=== PATIENT | male | born 1990 | race Caucasian/White ===

== ENCOUNTER 2020-01-28 09:30 | Emergency (ER) | payer OTHER, SELFPAY ==
[2020-01-28 09:35] VITALS: BMI 25.0
[2020-01-28 09:39] VITALS: BP 122/73; PULSE 76; RESP 16; TEMP 36.9; O2SAT 100
--- NOTE | 2020-01-28 09:45 | XR_ITS ---
WS: [id number] XR hand RT min 3V* [id number] REASON FOR EXAM: trauma pinky FINDINGS: A corner fracture chip type is seen in the base of the middle fifth phalanx a small ossicle is seen separate from the bony structure. Soft tissue swelling of the fifth phalanx is seen. The remaining phalanges, metacarpals, and carpals were normal. XR/XR hand RT min 3V* [id number] IMPRESSION: Corner fracture involving the middle fifth phalanx
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
--- NOTE | 2020-01-28 10:27 | DCPLANNER ---
manager bridge was asked to schedule a follow up appointment for patient with ortho. manager bridge called the ortho clinic, spoke with Rika, gave clinic patients information. manager bridge was told that patients information would be printed and reviewed. Clinic will call pillowcase cleaner and patient with appointment information.
--- NOTE | 2020-01-28 14:18 | DCPLANNER ---
Patient has a follow up appointment scheduled for , January 29, 2020 at 10:[address] Raya. parking manager [facility] information.
--- NOTE | 2020-02-10 15:03 | DCPLANNER ---
Patient did attend appointment scheduled for 01.29.20 with ortho.
== END 2020-01-28 10:28 | disposition home or self-care (01) ==
PROVIDERS: Emergency Provider Nurse Practitioner Family
DX: M79.644 Pain in right finger(s) (principal); F17.210 Nicotine dependence, cigarettes, uncomplicated
CPT/HCPCS: 12345; 73130; 99281; 99283

== ENCOUNTER 2020-02-03 08:49 | Outpatient (RCR) | payer OTHER, SELFPAY | END 2020-02-10 23:59 | disposition home or self-care (01) | LOC: SOT 08:49 | PROVIDERS: Referring Provider Specialist; Visit Provider Specialist | DX: S62.626D Displaced fracture of middle phalanx of right little finger, subsequent encounter for fracture with routine healing (principal); X58.XXXD Exposure to other specified factors, subsequent encounter | CPT/HCPCS: 97110; 97140; 97166 ==

== ENCOUNTER 2020-02-11 03:38 | Outpatient (RCR) | payer OTHER, SELFPAY | END 2020-03-12 23:59 | disposition home or self-care (01) | LOC: SOT 03:38 | PROVIDERS: Referring Provider Specialist; Visit Provider Specialist | DX: S62.626D Displaced fracture of middle phalanx of right little finger, subsequent encounter for fracture with routine healing (principal) | CPT/HCPCS: 97018; 97110 ==

== ENCOUNTER → 2022-04-24 07:50 | Outpatient (BNVA) | payer OTHER, SELFPAY | PROVIDERS: PCP Emergency Medicine Emergency Medical Services; Referring Provider Emergency Medicine Emergency Medical Services; Visit Provider Specialist | DX: G56.03 Carpal tunnel syndrome, bilateral upper limbs (principal) | CPT/HCPCS: 95910; 95912 ==

== ENCOUNTER 2022-05-15 19:42 | Emergency (ER) | payer OTHER, SELFPAY ==
--- NOTE | 2022-05-15 19:45 | ECG_ITS ---
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 Measurements Intervals [place] Rate: 76 P: 66 MO: 132 QRS: 131 QRSD: 99 T: 49 QT: 370 QTc: 418 Interpretive Statements SINUS RHYTHM POSSIBLE LEFT ATRIAL ENLARGEMENT [-0.1mV P-WAVE IN V1/V2] INCOMPLETE RIGHT BUNDLE BRANCH BLOCK [90+ ms QRS DURATION, TERMINAL R IN V1/V2, 40+ ms S IN I/aVL/V4/V5/V6] POSSIBLE RIGHT VENTRICULAR HYPERTROPHY [SOME/ALL OF: PROMINENT R IN V1, LATE TRANSITION, RAD, SULMA, SSS] SEPTAL MYOCARDIAL INFARCTION , OF INDETERMINATE AGE [40+ ms Q WAVE IN V1/V2] No previous ECG available for comparison Electronically Signed On 05-15-2022 22:42:56 CDT by Jeanmarie Rogers M.D. [id number]
--- NOTE | 2022-05-15 19:45 | XRR_ITS ---
PROCEDURE INFORMATION: Exam: XR Chest Exam date and time: 05/15/2022 8:27 PM Age: 31 years old Clinical indication: Pain; Other: Epigastric; Additional info: Cp TECHNIQUE: Imaging protocol: Radiologic exam of the chest. Views: 1 view. COMPARISON: No relevant prior studies available. FINDINGS: Lungs: No consolidation. Pleural spaces: Unremarkable. No pleural effusion. No pneumothorax. Heart/Mediastinum: No cardiomegaly. Bones/joints: No acute findings. XR/XR chest 1V portable [id number] IMPRESSION: No acute findings.
[2022-05-15 19:49] VITALS: BP 121/77; PULSE 84; RESP 16; TEMP 36.7; O2SAT 95
--- NOTE | 2022-05-15 21:51 | W.ED.ABDPA2 ---
HPI - Abdominal Pain General: Chief Complaint: Abdominal Pain Stated Complaint: Pain Between Breast Plate Time Seen by Provider: 05/15/22 21:46 History of Present Illness: 31-year-old male patient comes in today with complaints of epigastric discomfort. Patient does have a history of a bleeding ulcer. Patient does smoke cigarettes and occasionally drinks alcohol. Patient reports no cardiac history. Patient reports that his grandmother had early cardiac problems. Patient appears nontoxic. Patient appears in mild to no pain. Associated Symptoms: Reports nausea; Denies fever(s) Review of Systems Const: Denies: fever(s) Card: Reports: chest pain Resp: Denies: dyspnea GI: Reports: abdominal pain and nausea : Denies: difficulty urinating [facility] ED PFSH: Social History (Updated 04/24/22 @ 07:53 by Rody Barber LPN) Smoking and tobacco status: current every day smoker Alcohol intake: never History of recent travel: No Physical Exam Const: COMMON NORMALS: alert HENMT: COMMON NORMALS: normocephalic HEAD & SCALP: normocephalic Neck/C-Spine: COMMON NORMALS: full ROM Resp: COMMON NORMALS: normal respiratory effort and clear to auscultation bilaterally AUSCULTATION: clear to auscultation bilaterally Cardio: COMMON NORMALS: regular rate and regular rhythm RATE: regular rate RHYTHM: regular rhythm GI: AUSCULTATION: Yes normoactive bowel sounds PALPATION: Yes Tenderness to palpation present (GI) (Epigastric) : COMMON NORMALS: Yes no CVA tenderness BLADDER/KIDNEY EXAM: Yes no CVA tenderness Back/Pelvis: COMMON NORMALS: no CVA tenderness Extremity: COMMON NORMALS: full ROM Neuro: SENSORIUM/ORIENTATION: Yes alert Skin: COMMON NORMALS: turgor normal GENERAL SKIN EXAM: turgor normal Course Vital Signs: Vital signs: Vital Signs Temperature 98.1 F 05/15/22 19:49 Pulse Rate 77 05/15/22 23:02 Respiratory Rate 18 05/15/22 23:02 Blood Pressure 116/76 05/15/22 23:02 Pulse Oximetry 97 05/15/22 23:02 Oxygen Delivery Me thod 05/15/22 23:02 MDM - Abdominal Pain Medical Decision Making Patient comes in today with midepigastric pain difficulty holding food and fluids down for the last 3 days. Patient does have a history of ulcer about 10 years ago. On exam abdomen soft with some epigastric tenderness. Patient appears nontoxic. Patient's vital signs are normal. Differential diagnosis includes but not limited to gallbladder disease, gastritis, GERD, pancreatitis. Laboratory values were unremarkable. Suspect patient probably has a bout of gastritis we will start him on pantoprazole 40 mg daily with recommendations for follow-up with primary care or specialist for EGD and further evaluation. Patient appears nontoxic and no sign of immediate surgical abdomen was noted. Patient reported understanding of care plan and need for follow-up or return to the ER. Lab Data : 05/15/22 21:56 05/15/22 21:56 Labs/Radiology: Radiology Impressions Chest X-Ray 05/15/22 19:45 IMPRESSION: No acute findings. Laboratory Results WBC 6.9 10^3/uL (4.0-10.0) 05/15/22 21:56 RBC 5.46 10^6/uL (4.1-5.3) H 05/15/22 21:56 Hgb 16.2 g/dL (11.7-16.6) 05/15/22 21:56 Hct 48.7 % (42.0-52.0) 05/15/22 21:56 MCV 89.2 fl (80-94) 05/15/22 21:56 MCH 29.7 pg (28.0-34.0) 05/15/22 21:56 MCHC 33.3 g/dL (30.0-36.0) 05/15/22 21:56 RDW 12.8 % (12.1-15.1) 05/15/22 21:56 Plt Count 176 10^3/cmm (130-400) 05/15/22 21:56 MPV 10.9 fL (7.4-10.4) H 05/15/22 21:56 Neut % (Auto) 71.2 % 05/15/22 21:56 Lymph % (Auto) 15.5 % 05/15/22 21:56 [place] % (Auto) 12.8 % 05/15/22 21:56 Eos % (Auto) 0.1 % 05/15/22 21:56 Baso % (Auto) 0.1 % 05/15/22 21:56 Neut # (Auto) 4.87 10^3/uL (1.8-7.7) 05/15/22 21:56 Lymph # (Auto) 1.1 10^3/uL (0.8-4.8) 05/15/22 21:56 [place] # (Auto) 0.9 10^3/uL (0.2-0.9) 05/15/22 21:56 Eos # (Auto) 0.0 10^3/uL (0.0-0.8) 05/15/22 21:56 Baso # (Auto) 0.0 10^3/uL (0.0-0.1) 05/15/22 21:56 Nucleated RBC % (auto) 0 % 05/15/22 21:56 Nucleated RBCs # 0.0 /100WBC 05/15/22 21:56 Sodium 137 mmol/L (136-145) 05/15/22 21:56 Potassium 4.2 mmol/L (3.5-5.1) 05/15/22 21:56 Chloride 96 mmol/L (98-107) L 05/15/22 21:56 Carbon Dioxide 30 mmol/L (22-29) H 05/15/22 21:56 Anion Gap 15.2 (5-19) 05/15/22 21:56 BUN 13 mg/dL (6-20) 05/15/22 21:56 Creatinine 1.0 mg/dL (0.7-1.2) 05/15/22 21:56 GFR Calculation 86.6 mL/min (90-130) L 05/15/22 21:56 Glucose 112 mg/dL (65-115) 05/15/22 21:56 Calculated Osmolality 285 mOsm/kg (285-295) 05/15/22 21:56 Calcium 9.5 mg/dL (8.5-10.5) 05/15/22 21:56 Total Bilirubin 0.8 mg/dL (0.15-1.2) 05/15/22 21:56 AST 34 U/L (0-40) 05/15/22 21:56 ALT 30 U/L (0-41) 05/15/22 21:56 Alkaline Phosphatase 41 U/L (40-130) 05/15/22 21:56 Troponin T Gen 5 ng/L 8 ng/L (0-15) 05/15/22 21:56 Total Protein 7.3 g/dL (6.6-8.7) 05/15/22 21:56 Albumin 4.6 g/dL (3.5-5.2) 05/15/22 21:56 Globulin 2.7 g/dL (1.3-4.6) 05/15/22 21:56 Lipase 23 U/L (13-60) 05/15/22 21:56 Discharge Plan Discharge Patient Disposition: Home Clinical Impression: Gastritis Qualifiers: Gastritis type: unspecified gastritis Chronicity: unspecified Gastritis bleeding: presence of bleeding unspecified Qualified Code(s): K29.70 - Gastritis, unspecified, without bleeding Condition: Stable Prescriptions: New pantoprazole 40 mg tablet,delayed release (DR/EC) 40 mg PO DAILY 28 Days Qty: 30 0RF ondansetron 4 mg tablet,disintegrating 4 mg PO Q8H PRN (Reason: nausea and vomiting) Qty: 10 0RF Discharge Orders: Discharge ED (Routine); Ordered 05/15/22 Ordered By: Cecilio Caban Referrals: Abiodun Wong DO [Primary Care Provider] - Discharge Diet: Usual diet Discharge Activity: Increase activity as tolerated Patient Instructions: Gastritis (ED) Activity Restrictions/Additional Instructions: Take medication pantoprazole 30 minutes before your first meal of the day. Drink frequent sips of fluid maintain hydration. Use ondansetron for nausea and/or vomiting. Follow-up with primary care or specialist regarding gastritis and repeat EGD. Case management will contact you regarding this follow-up appointment and assist with it. Return to ER for fever greater than 100.4, large amounts of blood in vomit or stool, or new concerns. Coding Level of Care Code ED Automobile Body Worker for Norm Fwd Exam Comprehensive
[2022-05-15 22:15] LABS: Basophils % 0.1 %; Eosinophils % 0.1 %; Hematocrit 48.7 % (42.0-52.0); Hemoglobin 16.2 g/dL (11.7-16.6); Lymphocytes # 1.1 10^3/uL (0.8-4.8); Lymphocytes % 15.5 %; Mean Corpuscular HGB Conc 33.3 g/dL (30.0-36.0); Mean Corpuscular Hemoglobin 29.7 pg (28.0-34.0); Mean Corpuscular Volume 89.2 fl (80-94); Mean Platelet Volume 10.9 fL (7.4-10.4); Monocytes # 0.9 10^3/uL (0.2-0.9); Monocytes % 12.8 %; Neutrophils # 4.87 10^3/uL (1.8-7.7); Neutrophils % 71.2 %; Nucleated Red Blood Cells % 0 %; Platelet Count 176 10^3/cmm (130-400); Red Blood Count 5.46 10^6/uL (4.1-5.3); Red Cell Distribution Width 12.8 % (12.1-15.1); White Blood Count 6.9 10^3/uL (4.0-10.0)
[2022-05-15 22:33] LABS: Alanine Aminotransferase 30 U/L (0-41); Albumin Level 4.6 g/dL (3.5-5.2); Alkaline Phosphatase 41 U/L (40-130); Anion Gap 15.2 (5-19); Aspartate Amino Transferase 34 U/L (0-40); Blood Urea Nitrogen 13 mg/dL (6-20); Calcium 9.5 mg/dL (8.5-10.5); Carbon Dioxide 30 mmol/L (22-29); Chloride 96 mmol/L (98-107); Creatinine Clr Calc Pharmacy 98.2434; Globulin 2.7 g/dL (1.3-4.6); Glomerular Filtration Rate 86.6 mL/min (90-130); Glucose 112 mg/dL (65-115); Lipase 23 U/L (13-60); Osmolality Calculated 285 mOsm/kg (285-295); Potassium 4.2 mmol/L (3.5-5.1); Sodium 137 mmol/L (136-145); Total Bilirubin 0.8 mg/dL (0.15-1.2); Total Protein 7.3 g/dL (6.6-8.7)
[2022-05-15 22:39] LABS: Troponin T (5th) Once 8 ng/L (0-15)
[2022-05-15] MEDS: pantoprazole 40 mg SDV 80 MG IVP (22:50)
[2022-05-15] MEDS: sodium chloride 0.9% 500 ML 999 ML IV (22:50)
[2022-05-15 23:02] VITALS: BP 116/76; PULSE 77; RESP 18; O2SAT 97
--- NOTE | 2022-05-16 04:34 | DCPLANNER ---
Addendum entered by Chyna Ordonez 06/01/22 14:15: appointment cancelled Addendum entered by Chyna Ordonez 05/19/22 14:15: Patient has a follow up appointment scheduled for Sunday, May 22, 2022 at 3:[address] Beasley at general surgery. Clinic will call patient with appointment information. Original Note: manager monitoring had message to schedule a follow up appointment for patient with general surgery. manager monitoring sent patients information to the front office staff at general surgery. Patients information will be printed and reviewed. Clinic will call patient with appointment information.
== END 2022-05-15 23:38 | disposition home or self-care (01) ==
PROVIDERS: Emergency Medicine; Emergency Provider Nurse Practitioner Family; PCP Emergency Medicine Emergency Medical Services
DX: K29.70 Gastritis, unspecified, without bleeding (principal); F17.210 Nicotine dependence, cigarettes, uncomplicated
CPT/HCPCS: 71045; 80053; 83690; 84484; 85025; 93005; 96361; 96374; 99285; C9113; J7040

== ENCOUNTER 2023-03-14 12:09 | Emergency (ER) | payer OTHER, SELFPAY ==
[2023-03-14 12:18] VITALS: BP 120/82; PULSE 75; RESP 15; O2SAT 98
--- NOTE | 2023-03-14 12:26 | ECG_ITS ---
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 Measurements Intervals [place] Rate: 69 P: 70 PA: 142 QRS: 118 QRSD: 98 T: 50 QT: 389 QTc: 418 Interpretive Statements SINUS RHYTHM WITH SINUS ARRHYTHMIA INDETERMINATE AXIS POSSIBLE RIGHT VENTRICULAR CONDUCTION DELAY [RSR (QR) IN V1/V2] Compared to ECG 05/15/2022 21:49:27 Indeterminate axis now present Incomplete right bundle-branch block no longer present Atrial abnormality no longer present Myocardial infarct finding no longer present Electronically Signed On 03-14-2023 23:23:54 CDT by Zahida Lopez M.D. [id number]
--- NOTE | 2023-03-14 15:54 | XRR_ITS ---
PROCEDURE INFORMATION: Exam: XR Chest Exam date and time: 03/14/2023 4:02 PM Age: 32 years old Clinical indication: Pain; Angina pectoris; Additional info: Cp TECHNIQUE: Imaging protocol: Radiologic exam of the chest. Views: 1 view. COMPARISON: CR XR chest 1V portable [id number] 05/15/2022 8:27 PM FINDINGS: Lungs: Unremarkable. No consolidation. Pleural spaces: Unremarkable. No pleural effusion. No pneumothorax. Heart/Mediastinum: Unremarkable. No cardiomegaly. Bones/joints: Unremarkable. XR/XR chest 1V portable [id number] IMPRESSION: No acute findings.
[2023-03-14 16:56] LABS: Basophils # 0.1 10^3/uL (0.0-0.1); Basophils % 0.9 %; Eosinophils # 0.6 10^3/uL (0.0-0.8); Eosinophils % 9.6 %; Hematocrit 47.5 % (42.0-52.0); Hemoglobin 15.9 g/dL (11.7-16.6); Lymphocytes # 1.4 10^3/uL (0.8-4.8); Lymphocytes % 23.7 %; Mean Corpuscular HGB Conc 33.5 g/dL (30.0-36.0); Mean Corpuscular Hemoglobin 31.3 pg (28.0-34.0); Mean Corpuscular Volume 93.5 fl (80-94); Mean Platelet Volume 10.2 fL (7.4-10.4); Monocytes # 0.6 10^3/uL (0.2-0.9); Monocytes % 10.6 %; Neutrophils # 3.15 10^3/uL (1.8-7.7); Nucleated Red Blood Cells % 0 %; Platelet Count 211 10^3/cmm (130-400); Red Blood Count 5.08 10^6/uL (4.1-5.3); Red Cell Distribution Width 12.8 % (12.1-15.1); White Blood Count 5.7 10^3/uL (4.0-10.0)
[2023-03-14 17:21] LABS: Alanine Aminotransferase 54 U/L (0-41); Albumin Level 4.8 g/dL (3.5-5.2); Alkaline Phosphatase 35 U/L (40-130); Anion Gap 16.4 (5-19); Aspartate Amino Transferase 49 U/L (0-40); Blood Urea Nitrogen 15 mg/dL (6-20); Calcium 9.8 mg/dL (8.5-10.5); Carbon Dioxide 26 mmol/L (22-29); Chloride 100 mmol/L (98-107); Creatinine Clr Calc Pharmacy 111.7437; Globulin 2.4 g/dL (1.3-4.6); Glomerular Filtration Rate 97.2 mL/min (90-130); Glucose 85 mg/dL (65-115); Osmolality Calculated 286 mOsm/kg (285-295); Potassium 4.4 mmol/L (3.5-5.1); Sodium 138 mmol/L (136-145); Total Bilirubin 0.9 mg/dL (0.15-1.2); Total Protein 7.2 g/dL (6.6-8.7)
--- NOTE | 2023-03-14 18:41 | ECG_ITS ---
[facility] Test Date: 2023-03-14 Pat Name: Joyce Cordon Department: Room: Gender: Male Safety Sitter: : 1990 Requested By: Faheem Knight Order Number: [id number] Rocco MD: Zahida Lopez M.D. Measurements Intervals [place] Rate: 64 P: 57 FL: 140 QRS: 133 QRSD: 106 T: 31 QT: 387 QTc: 401 Interpretive Statements SINUS RHYTHM POSSIBLE LEFT ATRIAL ENLARGEMENT [-0.1mV P-WAVE IN V1/V2] INDETERMINATE AXIS POSSIBLE RIGHT VENTRICULAR CONDUCTION DELAY [RSR (QR) IN V1/V2] Compared to ECG 03/14/2023 12:26:45 Sinus arrhythmia no longer present Electronically Signed On 03-14-2023 23:27:27 CDT by Zahida Lopez M.D. [id number]
[2023-03-14 19:05] LABS: Troponin(5th) Baseline 6 ng/L (0-15)
--- NOTE | 2023-03-14 19:11 | W.ED.CHESTPA ---
HPI - Chest Pain General: Chief Complaint: Chest Pain Stated Complaint: [facility] tight[facility] Time Seen by Provider: 03/14/23 18:36 Source: patient Mode of arrival: ambulatory Limitations: no limitations History of Present Illness: 32-year-old male states that he has been having chest pains since 3:00 this morning states the pains been sharp in nature some radiation to his right arm denies any worsening proving factors denies any shortness of breath. States his pain is currently 2 out of 10 denies any history of heart disease. Associated symptoms: Deny abdominal pain, dyspnea, fever(s), nausea or vomiting Review of Systems Const: Denies: fever(s), chills, body aches or change in appetite ENMT: Denies: throat pain or dental pain Card: Reports: chest pain Resp: Denies: dyspnea GI: Denies: abdominal pain, nausea, vomiting or diarrhea Musc: Denies: neck pain or back pain Skin/Breast: Denies: rash Neuro: Denies: headache(s) PFSH ED PFSH: Social History Smoking and tobacco status: current every day smoker Alcohol intake: never Substance/Drug Use: never Physical Exam Const: COMMON NORMALS: no acute distress, patient oriented x3 and healthy appearing HENMT: COMMON NORMALS: normocephalic and atraumatic HEAD & SCALP: normocephalic and atraumatic Eye: COMMON NORMALS: conjunctivae normal CONJUNCTIVA: Yes conjunctivae normal Neck/C-Spine: COMMON NORMALS: full ROM and supple Chest: COMMONS NORMALS: normal inspection of the chest Resp: COMMON NORMALS: normal respiratory effort, No retractions, No use of accessory muscles and clear to auscultation bilaterally AUSCULTATION: clear to auscultation bilaterally Cardio: COMMON NORMALS: regular rate, regular rhythm and No murmurs present (Cardio) RATE: regular rate RHYTHM: regular rhythm GI: COMMON NORMALS: Normal to inspection, nondistended, normoactive bowel sounds present, Soft to palpation, non-tender and no masses PALPATION: Yes Soft to palpation Extremity: COMMON NORMALS: normal to inspection and full ROM Neuro: COMMON NORMALS: patient oriented x3, moves all extremities and no focal motor deficits Psych: COMMON NORMALS: mental status grossly normal, Normal thought process present and cooperative THOUGHT PROCESS: Normal thought process present Skin: COMMON NORMALS: no rashes or lesions noted and no wounds GENERAL SKIN EXAM: no rashes or lesions noted Course Vital Signs: Vital signs: Vital Signs Pulse Rate 75 03/14/23 12:18 Respiratory Rate 15 03/14/23 12:18 Blood Pressure 120/82 03/14/23 12:18 Pulse Oximetry 98 03/14/23 12:18 Oxygen Delivery Me thod Room Air 03/14/23 12:18 MDM - Chest Pain Medical Decision Making Patient presents for chest pain atypical in nature troponins blood work here are all normal we will place him on Naprosyn he is to follow-up with PCP and return if worsening he understands and agrees to plan is no signs of acute coronary syndrome no signs of PE or dissection. No pneumothorax. Medical Records I reviewed the patient's medical records. Lab Data I reviewed the patient's lab results. 03/14/23 16:50 03/14/23 16:50 Radiology Impressions Chest X-Ray 03/14/23 15:54 IMPRESSION: No acute findings. Laboratory Results WBC 5.7 10^3/uL (4.0-10.0) 03/14/23 16:50 RBC 5.08 10^6/uL (4.1-5.3) 03/14/23 16:50 Hgb 15.9 g/dL (11.7-16.6) 03/14/23 16:50 Hct 47.5 % (42.0-52.0) 03/14/23 16:50 MCV 93.5 fl (80-94) 03/14/23 16:50 MCH 31.3 pg (28.0-34.0) 03/14/23 16:50 MCHC 33.5 g/dL (30.0-36.0) 03/14/23 16:50 RDW 12.8 % (12.1-15.1) 03/14/23 16:50 Plt Count 211 10^3/cmm (130-400) 03/14/23 16:50 MPV 10.2 fL (7.4-10.4) 03/14/23 16:50 Neut % (Auto) 55.0 % 03/14/23 16:50 Lymph % (Auto) 23.7 % 03/14/23 16:50 Price % (Auto) 10.6 % 03/14/23 16:50 Eos % (Auto) 9.6 % 03/14/23 16:50 Baso % (Auto) 0.9 % 03/14/23 16:50 Neut # (Auto) 3.15 10^3/uL (1.8-7.7) 03/14/23 16:50 Lymph # (Auto) 1.4 10^3/uL (0.8-4.8) 03/14/23 16:50 Price # (Auto) 0.6 10^3/uL (0.2-0.9) 03/14/23 16:50 Eos # (Auto) 0.6 10^3/uL (0.0-0.8) 03/14/23 16:50 Baso # (Auto) 0.1 10^3/uL (0.0-0.1) 03/14/23 16:50 Nucleated RBC % (auto) 0 % 03/14/23 16:50 Nucleated RBCs # 0.0 /100WBC 03/14/23 16:50 Sodium 138 mmol/L (136-145) 03/14/23 16:50 Potassium 4.4 mmol/L (3.5-5.1) 03/14/23 16:50 Chloride 100 mmol/L (98-107) 03/14/23 16:50 Carbon Dioxide 26 mmol/L (22-29) 03/14/23 16:50 Anion Gap 16.4 (5-19) 03/14/23 16:50 BUN 15 mg/dL (6-20) 03/14/23 16:50 Creatinine 0.9 mg/dL (0.7-1.2) 03/14/23 16:50 GFR Calculation 97.2 mL/min (90-130) 03/14/23 16:50 Glucose 85 mg/dL (65-115) 03/14/23 16:50 Calculated Osmolality 286 mOsm/kg (285-295) 03/14/23 16:50 Calcium 9.8 mg/dL (8.5-10.5) 03/14/23 16:50 Total Bilirubin 0.9 mg/dL (0.15-1.2) 03/14/23 16:50 AST 49 U/L (0-40) H 03/14/23 16:50 ALT 54 U/L (0-41) H 03/14/23 16:50 Alkaline Phosphatase 35 U/L (40-130) L 03/14/23 16:50 Troponin T Baseline 6 ng/L (0-15) 03/14/23 16:50 Troponin T 120 Minute 6.00 ng/L (0-15) 03/14/23 18:56 Total Protein 7.2 g/dL (6.6-8.7) 03/14/23 16:50 Albumin 4.8 g/dL (3.5-5.2) 03/14/23 16:50 Globulin 2.4 g/dL (1.3-4.6) 03/14/23 16:50 Lipase 20 U/L (13-60) 03/14/23 16:50 EKG Data EKG 1: I personally reviewed and interpreted this EKG as follows: EKG interpretation date: 03/14/23 EKG interpretation time: 18:58 Interpretation: nsr hr [address] or t wave abnormalities qrs 106 qtc 397 Discharge Plan Discharge Patient Disposition: Home Clinical Impression: Chest pain Condition: Stable Prescriptions: New Naprosyn 500 mg tablet 500 mg PO BID PRN (Reason: pain) Qty: 20 0RF No Action ondansetron 4 mg tablet,disintegrating 4 mg PO Q8H PRN (Reason: nausea and vomiting) Qty: 10 0RF Discharge Orders: Discharge ED (Routine); Ordered 03/14/23 Ordered By: Faheem Knight Referrals: Abiodun Wong DO [Primary Care Provider] - 1-3 days Discharge Diet: Advance as tolerated Discharge Activity: Resume usual activity Patient Instructions: Chest Pain (ED) Coding Level of Care Code ED Network Operations Technician for Chg Nahomy
[2023-03-14 19:36] LABS: Lipase 20 U/L (13-60)
[2023-03-14 19:51] LABS: Troponin 5 2HR Delta 0 ABS# (0-10)
== END 2023-03-14 19:46 | disposition home or self-care (01) ==
PROVIDERS: Emergency Medicine; Emergency Provider Emergency Medicine; PCP Emergency Medicine Emergency Medical Services
DX: R07.89 Other chest pain (principal); F17.200 Nicotine dependence, unspecified, uncomplicated
CPT/HCPCS: 36415; 71045; 80053; 83690; 84484; 85025; 93005; 99285

== ENCOUNTER 2023-08-24 22:50 | Emergency (ER) | payer OTHER, SELFPAY ==
[2023-08-24 22:52] VITALS: BP 137/92; PULSE 86; RESP 20; TEMP 36.6; O2SAT 100; BMI 23.3
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
[2023-08-24 23:16] VITALS: BP 139/85; PULSE 83; RESP 16; O2SAT 97
[2023-08-24] MEDS: iohexol 350 mg/mL 500 mL Btl (per mL) IV (23:40)
[2023-08-24 23:47] LABS: Alanine Aminotransferase 14 U/L (0-41); Albumin Level 4.2 g/dL (3.5-5.2); Alkaline Phosphatase 47 U/L (40-130); Anion Gap 10.6 (5-19); Aspartate Amino Transferase 20 U/L (0-40); Blood Urea Nitrogen 21 mg/dL (6-20); Calcium 9.5 mg/dL (8.5-10.5); Carbon Dioxide 29 mmol/L (22-29); Chloride 99 mmol/L (98-107); Globulin 2.4 g/dL (1.3-4.6); Glomerular Filtration Rate 69.7 mL/min (90-130); Glucose 147 mg/dL (65-115); Magnesium 2.3 mg/dL (1.7-2.3); Osmolality Calculated 286 mOsm/kg (285-295); Potassium 3.6 mmol/L (3.5-5.1); Sodium 135 mmol/L (136-145); Total Bilirubin 0.4 mg/dL (0.15-1.2); Total Protein 6.6 g/dL (6.6-8.7)
[2023-08-24 23:48] LABS: Alcohol Level < 10 mg/dL (0-10)
[2023-08-24 23:49] LABS: Basophils # 0.1 10^3/uL (0.0-0.1); Basophils % 1.4 %; Eosinophils # 0.2 10^3/uL (0.0-0.8); Eosinophils % 4.1 %; Hematocrit 43.1 % (37-53); Lymphocytes # 1.4 10^3/uL (0.8-4.8); Lymphocytes % 24.2 %; Mean Corpuscular HGB Conc 33.4 g/dL (30-55); Mean Corpuscular Hemoglobin 30.3 pg (27-33); Mean Corpuscular Volume 90.5 fl (82-101); Mean Platelet Volume 10.1 fL (7.4-10.4); Monocytes # 0.9 10^3/uL (0.2-0.9); Monocytes % 15.4 %; Neutrophils # 3.23 10^3/uL (1.8-7.7); Neutrophils % 54.6 %; Nucleated Red Blood Cells % 0 %; Platelet Count 263 10^3/cmm (157-399); Red Blood Count 4.76 10^6/uL (3.85-5.65); Red Cell Distribution Width 12.6 % (12.1-15.1); White Blood Count 5.91 10^3/uL (3.29-11.43)
[2023-08-25 01:57] VITALS: BP 135/82; PULSE 95; RESP 16; O2SAT 95
[2023-08-25] MEDS: lidocaine-epi 1% 20 mL INJ INJECTION (01:57)
[2023-08-25 02:00] VITALS: BP 148/86; PULSE 109; RESP 16; O2SAT 98
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
== END 2023-08-25 03:01 | disposition home or self-care (01) ==
PROVIDERS: Emergency Provider Emergency Medicine; PCP Emergency Medicine Emergency Medical Services
DX: S06.0XAA Concussion with loss of consciousness status unknown, initial encounter (principal); S63.501A Unspecified sprain of right wrist, initial encounter; S80.01XA Contusion of right knee, initial encounter; S00.83XA Contusion of other part of head, initial encounter; S01.81XA Laceration without foreign body of other part of head, initial encounter; Z72.0 Tobacco use; V89.2XXA Person injured in unspecified motor-vehicle accident, traffic, initial encounter
CPT/HCPCS: 12011; 36415; 70450; 71260; 72125; 73110; 73562; 74177; 80053; 80307; 83735; 85025; 99285; Q9967

== ENCOUNTER → 2023-08-28 10:32 | Outpatient (BNVA) | payer OTHER, SELFPAY | PROVIDERS: PCP Family Medicine; Referring Provider Emergency Medicine Emergency Medical Services; Visit Provider Specialist | DX: G56.03 Carpal tunnel syndrome, bilateral upper limbs (principal) | CPT/HCPCS: 95911 ==

== ENCOUNTER → 2023-09-11 12:54 | Outpatient (BNVA) | payer OTHER, SELFPAY | PROVIDERS: PCP Family Medicine; Visit Provider Student in an Organized Health Care Education/Training Program | DX: G56.03 Carpal tunnel syndrome, bilateral upper limbs (principal) | CPT/HCPCS: 73110; 99204 ==

== ENCOUNTER 2023-10-17 12:04 | Day surgery (SDC) | payer OTHER, SELFPAY ==
[2023-10-17] VITALS (7 sets, daily range): BP systolic 102–140; BP diastolic 53–96; PULSE 94–128; RESP 16–18; TEMP 36.1–37.2; O2SAT 93–100; BMI 24.2
[2023-10-17] MEDS: ketorolac 30 mg/mL INJ IVP (12:44)
[2023-10-17] MEDS: acetaminophen 1,000 MG/100 ML PIGGYBACK 400 MG IV (12:44)
[2023-10-17] MEDS: sodium chloride 0.9% 1,000 ML 30 ML IV (12:44)
[2023-10-17] MEDS: scopolamine 1.5 Patch 1 PATCH TRANSDERMA (12:46)
--- NOTE | 2023-10-17 14:01 | ANES.PREANE2 ---
Pre-Anesthetic Assessment Height/Weight: Height 1.68 m Weight 68.039 kg Temp Pulse Resp BP Pulse Ox O2 Del Method 98.9 F 128 H 18 140/96 100 Room Air 10/17/23 12:29 10/17/23 12:29 10/17/23 12:29 10/17/23 12:29 10/17/23 12:29 10/17/23 12:30 Operation Date: 10/17/23 13:20 Proposed Procedures p Carpal Tunnel Release(Right) - Nabor Erich, DO Last intake: Intake Last Liquid Date 10/16/23 Last Liquid Time 20:30 Last Solid Date 10/16/23 Last Solid Time 19:00 Social Tobacco (marijuana use as gummies daily) Exam alert, oriented x 3 and clear to auscultation bilaterally tachycardic Airway Submandibular: within normal limits Cervical ROM: within normal limits Mallampati: Class I CV/HEM tachycardic Anesthetic Plan ASA status: 2 Anesthesia: MAC Risk of > 500 ml blood loss (7ml/kg in children): No Medications/Allergies Home Medications Medication Instructions Recorded Confirmed Last Taken Type ondansetron 4 mg disintegrating 4 mg PO Q8H PRN nausea and 05/15/22 10/16/23 Unknown Rx tablet vomiting #10 tabs naproxen 500 mg tablet (Naprosyn) 500 mg PO BID PRN pain #20 tabs 03/14/23 10/16/23 Unknown Rx ketorolac 10 mg tablet 10 mg PO TID PRN pain #10 tabs 08/25/23 10/16/23 Unknown Rx Allergies Allergy/AdvReac Type Severity Reaction Status Date / Time hydrocodone Allergy ADR-Itching Verified 10/16/23 12:32 Current Medications Generic Name Dose Route Start Last Admin Trade Name Freq PRN Reason Stop Dose Admin Sodium Chloride 1,000 mls @ 30 mls/hr 10/17/23 07:30 10/17/23 12:44 Sodium Chloride 0.9% IV 10/18/23 07:29 30 mls/hr .Q24H NADIYA Administration PFSH Anesthesia Social History Smoking and tobacco/nicotine status: current every day tobacco/nicotine user Alcohol intake: never Substance/Drug Use: never Data Anesthesia Cardiac Studies: No Data to Display
--- NOTE | 2023-10-17 17:37 | W.PM.OPSFHP ---
Same Day Surgery H&P Indication for Procedure/HPI DATE OF PROCEDURE: October 17, 2023 CHIEF COMPLAINT/INDICATIONFOR SURGICAL PROCEDURE: Right carpal tunnel syndrome PREOP DIAGNOSIS: Right carpal tunnel syndrome PLANNED PROCEDURE: Operation Date: 10/17/23 13:20 Proposed Procedures p Carpal Tunnel Release(Right) - Nabor Chester, DO Medications/Allergies* Allergies/Adverse Reactions Allergy/AdvReac Type Severity Reaction Status Date / Time hydrocodone Allergy ADR-Itching Verified 10/16/23 12:32 Current Medications: Generic Name Dose Route Start Last Admin Trade Name Freq PRN Reason Stop Dose Admin Sodium Chloride 1,000 mls @ 30 mls/hr 10/17/23 07:30 10/17/23 12:44 Sodium Chloride 0.9% IV 10/18/23 07:29 30 mls/hr .Q24H NADIYA Administration Pertinent History/Comorbid Conditions* Social History Smoking and tobacco/nicotine status: current every day tobacco/nicotine user Alcohol intake: never Substance/Drug Use: never Pertinent Exam Findings alert, oriented x 3, operative site marked and procedure specific exam findings Please refer to office note for full orthopedic examination 09/11/2023 Recommendations Surgery/Procedure today Other Plans: Plan to proceed to the OR today with right carpal tunnel release. Patient understands agrees with current plan. Questions answered. Coding Level of Care Code Acute Code for Norm Corea
[2023-10-17] MEDS: ceFAZolin 2,000 MG in sodium chloride 0.9% (plus) 50 ML 100 MG IV (19:28)
[2023-10-17] MEDS: lidocaine-epi 1% PF 1:200,000 30 mL SDV INJECTION (19:37)
[2023-10-17] MEDS: ROPivacaine 0.5% SDV 30 mL 150 MG INJECTION (19:37)
--- NOTE | 2023-10-17 19:51 | P.BOP_ITS ---
Date of Procedure: [10/17/2023] Surgeon: Nabor Jung DO [employer] Tester(s): Bandar Jung PA-C Procedure(s) performed: Right carpal tunnel release Findings of the procedure(s): Patient severe right carpal tunnel syndrome underwent procedure as planned without issues Estimated blood loss: 2 mL Specimen(s) removed: None Post-operative diagnosis: Right carpal tunnel syndrome
--- NOTE | 2023-10-17 19:52 | PM.OP ---
Operative Report Date of procedure: October 17, 2023 Surgeon: Nabor Jung DO Engineering Project Designer: Bandar Jung PA-C: PA was necessary for assistance in this case with hand positioning to execute the procedure, retraction and protection of neurovascular structures as well as to assist with wound closure and dressing application. Procedure: Preoperative diagnosis Right carpal tunnel syndrome Post-op diagnosis: Same Procedure done: 1.?Right carpal tunnel?release Surgeon: Nabor Jung DO Anesthesia: MAC (Local) Estimated blood loss: 2 mL Tourniquet time 6 minutes IV fluids: See anesthesia?record Complications: None Findings: See operative?report narrative Condition: stable Disposition: same day Brief History: Patient is a pleasant 32 year-old male with?right carpal tunnel syndrome.? Patient has been worked up in the outpatient setting findings and physical examination consistent with this.? Patient nerve conduction studies consistent with carpal tunnel syndrome.? We detailed out patient's?risk benefits complication alternatives with surgical and nonsurgical treatment options. Through shared decision making, patient agrees to proceed with surgical intervention of the left carpal tunnel?release .? Patient understands and agrees with current plan.? All questions answered.? Patient elects to proceed with surgical intervention with carpal tunnel?release. Procedure: Patient seen and evaluated in the preoperative holding area.? Consent was?reviewed and signed with patient.? Correct extremity was marked.? Patient was seen evaluated by the anesthesia department once cleared for surgery was brought back to the operative suite.? Patient was kept on [facility] in supine position all bony prominences were well-padded patient properly secured to the bed.??Right upper extremity was then placed onto an armboard.? A nonsterile tourniquet was applied to the?RIght upper arm.? Patient underwent anesthesia per the anesthesia department.? Patient's?Right upper extremity was then prepped and draped in standard orthopedic fashion.? Final timeout performed.? Patient?received appropriate preoperative antibiotics. Under sterile aseptic technique patient?received local anesthesia over the preplanned carpal tunnel incision site. Esmarch was used to exsanguinate the?Right upper extremity and tourniquet was insufflated to 250 mmHg. A standard mini open?Right carpal tunnel incision was made.? Starting distally at Jackman's cardinal line in line with the fourth?ray extending proximally distal to the wrist crease centered over the carpal tunnel.? Sharp scalpel incision was made through skin and subcutaneous tissue.? Self-retaining?retractor was placed and the palmar fascia was identified.? This was then split longitudinally and direct visualization of the transverse carpal ligament was then made.? I then utilizing scalpel feathered through the transverse carpal ligament until I entered the floor of the transverse carpal tunnel ligament into the carpal tunnel.? Next I switched to dissection scissors and completed my?release of the transverse carpal ligament distally with care to protect the?recurrent motor branch.? I completely?released into the palmar fat and until no entrapment was noted distally.? Care was made to protect the superficial palmar arch during my distal dissection.?? Next I utilized a nasal speculum placed on top of the transverse carpal ligament and utilize this to?retract the subcutaneous fat and tissue and under direct loupe magnification was able to identify the transverse carpal ligament.? Next I then placed a [place] underneath the transverse carpal tunnel ligament to protect the contents of the carpal tunnel and subsequently utilizing dissection scissors under loupe magnification completely?released the transverse carpal ligament proximally into the median antebrachial fascia.? Care was made to protect the palmar cutaneous branch by keeping my scissors curved ulnarly.? Once completely?released, I then placed my [place] and had appropriate decompression of the carpal tunnel proximally as well as distally.? I then inspected the contents of the carpal tunnel which showed an hourglass shape of the median nerve showing its compression.? No masses were noted.? Tendons appeared healthy.? Wound was then thoroughly irrigated.? Tourniquet deflated.? Hemostasis satisfactory with bipolar electrocautery.? I then closed the incision with interrupted nylon stitches.? Xeroform 4 x 4's and a bulky soft dressing was applied.? Patient was then awakened from anesthesia and taken to PACU in stable condition.? Patient tolerated procedure without complications. Disposition: Patient taken to PACU in stable condition?recovering well.? Dressing clean dry and intact.? Patient will?receive appropriate discharge instructions as well as pain medication postoperatively.? Patient to follow-up with me in the office in 2 weeks.? They understand they may be weightbearing as tolerated to the?right hand.? Patient should keep incision clean dry and intact.? Patient understands if any questions or concerns may contact the office.
--- NOTE | 2023-10-17 20:10 | P.PCN_ITS ---
PACU note Narrative: Patient is a 32-year-old male just underwent a right carpal tunnel release. Patient transferred to PACU in stable condition. Pain is well controlled. Dressing on hand is dry and in place. Patient's fingers are warm and well- perfused. Patient can wiggle fingers. normal cap refill under 2 seconds. Patient has normal elbow range of motion. Unable to assess sensation due to residual localized anesthetic. Exam: awake Disposition: discharged
--- NOTE | 2023-10-17 21:03 | ANE.PACU2 ---
Inpatient post-anesthesia follow up: Vital signs: Temperature 98.7 F Pulse Rate 95 Respiratory Rate 17 Blood Pressure 128/93 Pulse Oximetry 100 Oxygen Delivery Me thod Room Air Oxygen Flow Rate Fraction of Inspir ed Oxygen Hydration adequate: Yes Nausea and vomiting: No Mental status: Baseline Additional Comments: no apparent anesthetic complications noted
== END 2023-10-17 20:43 | disposition home or self-care (01) ==
PROVIDERS: PCP Family Medicine; Visit Provider Student in an Organized Health Care Education/Training Program
PROC: (CPT 64721; principal; 2023-10-17 13:20)
DX: G56.01 Carpal tunnel syndrome, right upper limb (principal); F17.200 Nicotine dependence, unspecified, uncomplicated
CPT/HCPCS: 64721; J0131; J0690; J1885; J2704; J2795; J3010; J7030

== ENCOUNTER → 2023-11-01 09:12 | Outpatient (BNVA) | payer OTHER, SELFPAY | PROVIDERS: PCP Family Medicine; Visit Provider Student in an Organized Health Care Education/Training Program | DX: Z98.890 Other specified postprocedural states (principal) | CPT/HCPCS: 99024; 99213 ==

== ENCOUNTER → 2023-12-28 13:43 | Outpatient (BNVA) | payer OTHER, SELFPAY | PROVIDERS: PCP Family Medicine; Visit Provider Specialist | DX: R55 Syncope and collapse (principal); R29.90 Unspecified symptoms and signs involving the nervous system; R56.9 Unspecified convulsions; G43.711 Chronic migraine without aura, intractable, with status migrainosus; Z98.890 Other specified postprocedural states | CPT/HCPCS: 99204; 99205 ==

== ENCOUNTER 2024-01-03 07:02 | Outpatient (CLI) | payer OTHER, SELFPAY ==
--- NOTE | 2024-01-03 07:15 | MR_ITS ---
WS: [id number] MRI HEAD WITHOUT CONTRAST TECHNIQUE: Sagittal T1, T2 axial, T2 axial FLAIR, axial and coronal T1 images, axial susceptibility w eighted imaging, axial diffusion weighted images, and coronal T2 images were obtained. CLINICAL INFORMATION: R55 - Syncope and collapse COMPARISON: CT 08/24/2023 FINDINGS: No evidence of restricted diffusion to suggest acute ischemia. Ventricular system and basal cisterns are patent. Normal carl-white differentiation. No suspicious intracranial signal abnormalities. Tiny focus of hemosiderin in the RIGHT frontal white matter. Normal posterior fossa. Normal vascular flow voids at the skull base. No extra-axial fluid collections. No evidence of mass or mass effect. Parana kendall sinuses and mastoid air cells are well aerated. Pneumatization LEFT petrous apex with mucosal thi ckening. Normal optic chiasm and pituitary infundibulum. Temporal lobes and hippocampal formations are normal in appearance. No other suspicious findings. MR/MR head wo con* [id number] IMPRESSION: 1. No evidence of restricted diffusion to suggest acute ischemia. 2. No suspicious intracranial signal abnormalities. 3. Normal optic chiasm and pituitary infundibulum. 4. Small focus of hemosiderin in the RIGHT frontal white matter. 5. No other suspicious findings.
== END 2024-01-03 07:03 | disposition home or self-care (01) ==
LOC: RAD 07:02
PROVIDERS: PCP Family Medicine; Visit Provider Specialist
DX: R55 Syncope and collapse (principal); R90.82 White matter disease, unspecified; H70.209 Unspecified petrositis, unspecified ear
CPT/HCPCS: 70551

== ENCOUNTER 2024-01-04 07:03 | Outpatient (CLI) | payer OTHER, SELFPAY ==
--- NOTE | 2024-01-04 07:00 | USCV_ITS ---
Joyce Cordon Age: 33 Gender: M : 1990 Exam Date: 01/04/2024 07:28 Ordering Phys: Dee Fontenot MD Technologist: ADRYAN Exam Location: [facility] [place] Indication: SYNCOPE BP: 134 / 70 HR: 77 Rhythm: Sinus Technical Quality: Adequate MEASUREMENTS (Male / Female) Normal Values 2D ECHO LV Diastolic Diameter PLAX 4.2 cm 4.2 - 5.9 / 3.9 - 5.3 cm IVS Diastolic Thickness 1.1 cm 0.6 - 1.0 / 0.6 - 0.9 cm IVS Systolic Thickness 1.4 cm LVPW Diastolic Thickness 1.5 cm 0.6 - 1.0 / 0.6 - 0.9 cm LVPW Systolic Thickness 2.2 cm LVOT Diameter 2.0 cm LV Ejection Fraction 2D Teich 59.4 % LV Ejection Fraction MOD 2C 54.8 % LV Ejection Fraction 2C AL 56.1 % LA Diameter 2.3 cm RA Systolic Volume 4C AL 24.7 ml RA Systolic Volume 4C MOD 22.4 ml LA Sys Volume AL 20.8 cm cubed LA Sys Volume Index AL 11.4 cm cubed/m squared Aorta at Sinotubular Diameter 2.9 cm IVC Diameter 2.0 cm M-MODE LA Ao Ratio MM 1.0 AV Cusp Separation MM 2.1 cm DOPPLER AV Peak Velocity 102.0 cm/s LVOT Peak Velocity 88.0 cm/s AV Area Cont Eq vti 2.9 cm squared AV Area Cont Eq pk 2.8 cm squared MV Peak Velocity 78.0 cm/s MV Area PHT 3.4 cm squared Mitral E to A Ratio 1.0 TR Peak Velocity 160.0 cm/s TR Peak Gradient 10.2 mmHg TR Mean Velocity 141.0 cm/s TR Mean Gradient 8.1 mmHg TR Velocity Time Integral 44.1 cm TV Peak E Velocity 44.0 cm/s Right Atrial Pressure 3.0 mmHg Pulmonary Artery Systolic Pressu 13.2 mmHg PV Peak Velocity 87.0 cm/s RV Ejection Time 0.3 s FINDINGS Left Ventricle Normal left ventricular size and systolic function, EF 56%.no regional wall motion abnormalities. Right Ventricle The right ventricle is normal in size and function. Right Atrium The right atrium is normal in size. Left Atrium The left atrium is normal in size. Mitral Valve No gross abnormalities noted Aortic Valve No gross abnormalities noted Tricuspid Valve No gross abnormalities noted Pulmonic Valve No gross abnormalities noted Pericardium Normal pericardium without effusion. Aorta Normal ascending aorta dimension. IVC The inferior vena cava appears normal. CONCLUSIONS Normal left ventricular size and systolic function, EF 56%. No regional wall motion abnormalities. No significant valvular abnormalities No intracardiac shunts by color-flow Doppler examination Normal cardiac chamber sizes There is no pericardial effusion. Dr Zahida Lopez MD FACC (Electronically Signed) Final Date: 05 Jan 2024 19:46 S
== END 2024-01-04 07:04 | disposition home or self-care (01) ==
LOC: RAD 07:03
PROVIDERS: PCP Family Medicine; Visit Provider Specialist
DX: R55 Syncope and collapse (principal)
CPT/HCPCS: 93306

== ENCOUNTER 2024-01-15 14:23 | Emergency (ER) | payer OTHER, SELFPAY ==
[2024-01-15 14:32] VITALS: BP 114/73; PULSE 100; RESP 18; TEMP 37; O2SAT 98
--- NOTE | 2024-01-15 14:45 | W.ED.EAR ---
HPI - Ear Problem General: Chief complaint: Ear Stated complaint: pain in left ear Time Seen by Provider: 01/15/24 14:30 Source: patient and family Mode of arrival: ambulatory Limitations: no limitations History of Present Illness: Patient is a 33-year-old male presents to ED today along with his mother for 2 separate complaints. His main complaint is a foreign body to his left ear canal. Patient states he has the plastic/rubber piece of an earbud stuck in his canal. He has tried to remove it at home without success. He has not noticed any bleeding from the canal. A separate complaint is multiple sores all over his body. Patient states he has had these before and was placed on oral antibiotics. MD Complaint: foreign body Location: left ear Duration: constant Severity: mild Context: other (fb) Discharge from ear: no Associated symptoms: Reports no associated symptoms; Denies ear or mastoid pain, fever(s), neck pain or tinnitus Treatment prior to arrival: other (attempted fb removal at home) Review of Systems Const: Denies: fever(s), chills, body aches, fatigue or malaise ENMT: Reports: change in hearing and other (fb L ear); Denies: ear or mastoid pain, ear discharge, tinnitus or disequilibrium Musc: Denies: neck pain, back pain, extremity pain or joint pain Skin/Breast: Reports: other (multiple scabbed sores) [facility] ED PFSH: Social History Smoking and tobacco/nicotine status: current every day tobacco/nicotine user (8-10/day) Alcohol intake: never Substance/Drug Use: never Physical Exam Const: COMMON NORMALS: no acute distress, average body habitus, patient oriented x3, no limitations, alert and well nourished HENMT: EXTERNAL AUDITORY CANAL: Abnormal EAC present EAC laterality: left Details: foreign body (plastic ear bud) TYMPANIC MEMBRANE: unable to visualize TM (L due to fb; after removal this appears normal) Neuro: COMMON NORMALS: patient oriented x3 SENSORIUM/ORIENTATION: Yes alert Skin: NARRATIVE SKIN EXAM: multiple picked/scabbed sores on extremities/face consistent with probable staph infections Procedures Foreign Body Removal Site: left and ear Description of foreign body: other (plastic ear bud in L EAC) Sedation/Analgesia: none Technique: removal with forceps Confirmed by:: direct visualization Complications: none Neurovascular: other (normal TM) Course Vital Signs: Vital signs: Vital Signs Temperature 98.6 F 01/15/24 14:32 Pulse Rate 100 01/15/24 14:32 Respiratory Rate 18 01/15/24 14:32 Blood Pressure 114/73 01/15/24 14:32 Pulse Oximetry 98 01/15/24 14:32 Oxygen Delivery Me thod Room Air 01/15/24 14:32 MDM - Ear Medical Decision Making Foreign body removed w/o difficulty. TM intact. Will place on Bactrim for his staph lesions. Medical Records I reviewed the patient's medical records. No radiology studies performed this visit Discharge Plan Discharge Patient Disposition: Home Clinical Impression: Staphylococcus aureus superficial folliculitis, Acute foreign body of left ear canal Condition: Stable Prescriptions: New Bactrim DS 800-160 mg tablet 1 tab PO BID 7 Days Qty: 14 0RF No Action ketorolac 10 mg tablet 10 mg PO TID PRN (Reason: pain) Qty: 10 0RF ondansetron 4 mg tablet,disintegrating 4 mg PO Q8H PRN (Reason: nausea and vomiting) Qty: 10 0RF naproxen [Naprosyn] 500 mg tablet 500 mg PO BID PRN (Reason: pain) Qty: 20 0RF tramadol 50 mg tablet 50 mg PO Q6H PRN (Reason: pain) Qty: 20 0RF Discharge Orders: Discharge ED (Routine); Ordered 01/15/24 Ordered By: Radha Martin Referrals: Brie Briscoe MD [Primary Care Provider] - Coding Level of Care Code ED Dialysis Clinical Manager for Shwethag Nahomy
== END 2024-01-15 15:08 | disposition home or self-care (01) ==
PROVIDERS: Emergency Provider Physician Assistant; PCP Family Medicine
DX: L73.8 Other specified follicular disorders (principal); A49.01 Methicillin susceptible Staphylococcus aureus infection, unspecified site; T16.2XXA Foreign body in left ear, initial encounter; W44.G1XA Audio device entering into or through a natural orifice, initial encounter; Z72.0 Tobacco use
CPT/HCPCS: 99283

== ENCOUNTER → 2024-03-25 14:30 | Outpatient (BNVA) | payer OTHER, SELFPAY | PROVIDERS: PCP Family Medicine; Visit Provider Specialist | DX: R55 Syncope and collapse (principal); R29.90 Unspecified symptoms and signs involving the nervous system; R56.9 Unspecified convulsions; G43.711 Chronic migraine without aura, intractable, with status migrainosus | CPT/HCPCS: 99214 ==

== ENCOUNTER 2024-04-23 08:30 | Outpatient (CLI) | payer OTHER, SELFPAY ==
--- NOTE | 2024-04-23 15:54 | USR_ITS ---
PROCEDURE INFORMATION: Exam: US Abdomen; Limited Exam date and time: 04/23/2024 3:56 PM Age: 33 years old Clinical indication: Abnormal findings; Abnormal lab test; Elevated liver enzymes; Additional info: Lfts. This patient is not NPO. TECHNIQUE: Imaging protocol: Real time ultrasound of the abdomen with image documentation. Limited exam focused on the region of clinical interest. COMPARISON: CT chest abdpel w/*[id number] 08/24/2023 11:36 PM FINDINGS: Liver: The liver is negative for acute abnormality. Liver span is 17 cm. Gallbladder: The gallbladder is partially contracted . GB wall 3 mm No gallstones are seen Biliary ducts: CBD 3 mm. IVC 2 cm. Aorta 1.4 cm. Right kidney: Right kidney 11 cm x 4 cm x 5 cm. US/US liver [id number] IMPRESSION: 1. Negative examination of the liver 2. Partial contraction of the gallbladder without NPO. 3. Otherwise No acute findings.
== END 2024-04-23 15:48 | disposition home or self-care (01) ==
PROVIDERS: PCP Family Medicine; Visit Provider Family Medicine
DX: K82.0 Obstruction of gallbladder (principal)
CPT/HCPCS: 76705

== ENCOUNTER → 2024-05-08 09:32 | Outpatient (BNVA) | payer OTHER, SELFPAY | PROVIDERS: PCP Family Medicine; Visit Provider Physician Assistant | DX: M25.511 Pain in right shoulder (principal); M75.41 Impingement syndrome of right shoulder | CPT/HCPCS: 20610; 73030; 99213; J3301 ==

== ENCOUNTER 2024-05-21 08:41 | Outpatient (CLI) | payer OTHER, SELFPAY ==
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
== END 2024-05-21 08:42 | disposition home or self-care (01) ==
LOC: RAD 08:41
PROVIDERS: PCP Family Medicine; Visit Provider Family Medicine
DX: S49.91XD Unspecified injury of right shoulder and upper arm, subsequent encounter (principal); M25.811 Other specified joint disorders, right shoulder; V89.2XXD Person injured in unspecified motor-vehicle accident, traffic, subsequent encounter
CPT/HCPCS: 73221

== ENCOUNTER → 2024-05-29 13:45 | Outpatient (BNVA) | payer OTHER, SELFPAY | PROVIDERS: PCP Family Medicine; Visit Provider Student in an Organized Health Care Education/Training Program | DX: S42.001K Fracture of unspecified part of right clavicle, subsequent encounter for fracture with nonunion (principal); M75.41 Impingement syndrome of right shoulder; V89.2XXD Person injured in unspecified motor-vehicle accident, traffic, subsequent encounter | CPT/HCPCS: 99213; 99214 ==

== ENCOUNTER 2024-06-05 21:25 | Emergency (ER) | payer OTHER, SELFPAY ==
[2024-06-05 21:34] VITALS: BP 129/58; PULSE 156; RESP 18; TEMP 36.6; O2SAT 98; BMI 25.2
--- NOTE | 2024-06-05 21:34 | XRR_ITS ---
PROCEDURE INFORMATION: Exam: XR Left Knee Exam date and time: 06/05/2024 9:45 PM Age: 33 years old Clinical indication: Injury or trauma; Fall; Blunt trauma; Knee; Left; Additional info: Fall pain TECHNIQUE: Imaging protocol: Radiologic exam of the left knee. Views: 3 views. COMPARISON: No relevant prior studies available. FINDINGS: Bones/joints: No acute fracture or dislocation. No knee joint effusion. Soft tissues: Quadriceps enthesophytes. XR/XR knee LT 3V* [id number] IMPRESSION: No acute fracture or dislocation.
[2024-06-05 21:39] VITALS: BP 129/58; PULSE 139; O2SAT 97
--- NOTE | 2024-06-05 21:46 | W.ED.EXTPRO ---
HPI - Extremity Problem General: Chief complaint: Extremity Injury, Lower Stated complaint: Dislocated Knee Time Seen by Provider: 06/05/24 21:32 History of Present Illness: Who presents by EMS with complaints of left knee pain after fall from about 4 feet. Patient fused IV and opioids in the ambulance is refusing opioids here in ER. Patient is unable to straighten out his leg. Patient does say that it only hurts around the knee region. Patient denies wanting narcotic pain medicine at this time secondary to a history of drug abuse. Related Data Home Medications Medication Instructions Recorded Confirmed levothyroxine 25 mcg tablet mcg PO 03/25/24 05/29/24 Previous Rx's Medication Instructions Recorded ondansetron 4 mg disintegrating 4 mg PO Q8H PRN nausea and 05/15/22 tablet vomiting #10 tabs naproxen 500 mg tablet (Naprosyn) 500 mg PO BID PRN pain #20 tabs 03/14/23 ketorolac 10 mg tablet 10 mg PO TID PRN pain #10 tabs 08/25/23 tramadol 50 mg tablet 50 mg PO Q6H PRN pain #20 tabs 10/17/23 ketorolac 10 mg tablet 10 mg PO TID PRN pain #20 tabs 06/05/24 ondansetron HCl 4 mg tablet 4 mg PO Q8H PRN nausea and 06/05/24 vomiting #14 tabs Allergies Allergy/AdvReac Type Severity Reaction Status Date / Time hydrocodone Allergy ADR-Itching Verified 05/29/24 13:57 Review of Systems General: Reports: 10 or more systems reviewed and unremarkable except in HPI and below PFSH ED PFSH: Social History Smoking and tobacco/nicotine status: current every day tobacco/nicotine user Alcohol intake: never Substance/Drug Use: never Physical Exam Const: COMMON NORMALS: no acute distress, average body habitus, patient oriented x3, no limitations, healthy appearing, alert and well nourished HENMT: COMMON NORMALS: normocephalic, atraumatic, hearing grossly normal bilaterally, external ears normal, Normal external nose present and moist oral mucous membranes HEAD & SCALP: normocephalic and atraumatic NOSE: Normal external nose present EXTERNAL EAR: Yes external ears normal Neck/C-Spine: COMMON NORMALS: full ROM, no lymphadenopathy, supple, no meningeal signs, no JVD and Thyroid normal THYROID: Thyroid normal Chest: COMMONS NORMALS: normal inspection of the chest and normal palpation of entire chest wall Resp: COMMON NORMALS: normal respiratory effort, No retractions, No use of accessory muscles and clear to auscultation bilaterally AUSCULTATION: clear to auscultation bilaterally Cardio: COMMON NORMALS: no JVD, regular rhythm, S1 normal heart sound present, S2 normal heart sound present, No gallops present (Cardio), No clicks present (Cardio) and No murmurs present (Cardio); negative for regular rate (Tachycardic) RATE: abnormal rate (Tachycardic) RHYTHM: regular rhythm HEART SOUNDS: S1 normal heart sound present and S2 normal heart sound present GI: COMMON NORMALS: Normal to inspection, nondistended, normoactive bowel sounds present, Soft to palpation, non-tender, No hepatosplenomegaly present and no masses PALPATION: Yes Soft to palpation and Yes No hepatosplenomegaly present Extremity: NARRATIVE EXTREMITY EXAM: Patient holds his left knee keeps pressure on and will not straighten it or let it go. There is no obvious deformity. Neuro: COMMON NORMALS: patient oriented x3 SENSORIUM/ORIENTATION: Yes alert MENINGEAL SIGNS: Yes no meningeal signs Course Vital Signs: Vital signs: Vital Signs Temperature 97.8 F 06/05/24 21:34 Pulse Rate 125 H 06/05/24 23:00 Respiratory Rate 18 06/05/24 21:34 Blood Pressure 131/68 06/05/24 22:09 Pulse Oximetry 96 06/05/24 23:00 MDM - Extremity (Nontraumatic) Medical Decision Making Patient knee x-ray which showed no acute fracture or dislocation. Patient was placed in knee immobilizer given crutches, patient received Toradol and Zofran which helped the pain. Patient will be discharged and be referred to Ortho Dr. Jung for follow-up and he will be given Toradol and Zofran prescription sent to his pharmacy. Medical Records I reviewed the patient's medical records. Lab Data I reviewed the patient's lab results. Radiology Impressions Knee X-Ray 06/05/24 21:34 IMPRESSION: No acute fracture or dislocation. All radiology interpretation(s) finalized by discharge Discharge Plan Discharge Patient Disposition: Home Clinical Impression: Acute pain of left knee Condition: Stable Prescriptions: New ondansetron HCl 4 mg tablet 4 mg PO Q8H PRN (Reason: nausea and vomiting) Qty: 14 0RF ketorolac 10 mg tablet 10 mg PO TID PRN (Reason: pain) Qty: 20 0RF Rx Instructions: maximum total duration of 5 days from all oral, intranasal, or parenteral formulations No Action levothyroxine 25 mcg tablet PO ketorolac 10 mg tablet 10 mg PO TID PRN (Reason: pain) Qty: 10 0RF ondansetron 4 mg tablet,disintegrating 4 mg PO Q8H PRN (Reason: nausea and vomiting) Qty: 10 0RF naproxen [Naprosyn] 500 mg tablet 500 mg PO BID PRN (Reason: pain) Qty: 20 0RF tramadol 50 mg tablet 50 mg PO Q6H PRN (Reason: pain) Qty: 20 0RF Discharge Orders: Discharge ED (Routine); Ordered 06/05/24 Ordered By: Nishant Youssef Referrals: Brie Briscoe MD [Primary Care Provider] - 1 week Patient Instructions: Knee Pain (ED) Activity Restrictions/Additional Instructions: Your x-rays performed in the ER were negative for acute fracture however this does not show ligaments or menisci. You have been referred back to Dr. Erich Acosta as you already have seen him. You have been provided with crutches and a knee immobilizer. Please use these at all times until seen by Ortho. Ketorolac and Zofran have been called into your pharmacy please pick these up and use these as directed. Coding Level of Care Code ED [employer] Operator for Norm Corea
[2024-06-05 22:09] VITALS: BP 131/68; PULSE 123; O2SAT 96
[2024-06-05] MEDS: ondansetron 2 mg/ML SDV 2 mL 4 MG IVP (22:16)
[2024-06-05] MEDS: ketorolac 30 mg/mL INJ IVP (22:16)
[2024-06-05 22:30] VITALS: PULSE 116; O2SAT 96
[2024-06-05 23:00] VITALS: PULSE 125; O2SAT 96
[2024-06-05 23:36] VITALS: BP 137/80; PULSE 127; O2SAT 98
--- NOTE | 2024-06-06 00:27 | DCPLANNER ---
Message sent to Ortho for follow up LT knee traumatic injury
== END 2024-06-05 23:35 | disposition home or self-care (01) ==
PROVIDERS: Emergency Provider Emergency Medicine; PCP Family Medicine
DX: M25.562 Pain in left knee (principal); W17.89XA Other fall from one level to another, initial encounter
CPT/HCPCS: 73562; 96374; 96375; 99284; J1885; J2405

== ENCOUNTER → 2024-06-12 14:51 | Outpatient (BNVA) | payer OTHER, SELFPAY | PROVIDERS: PCP Family Medicine; Visit Provider Orthopaedic Surgery | DX: M25.562 Pain in left knee (principal) | CPT/HCPCS: 73562; 99204 ==

== ENCOUNTER 2024-06-16 08:08 | Outpatient (CLI) | payer OTHER, SELFPAY ==
--- NOTE | 2024-06-16 08:15 | MR_ITS ---
WS: [id number] MRI LEFT KNEE HISTORY: left knee injury COMPARISON: Radiograph 06/12/2024 Anterior cruciate ligament: Intact. Posterior cruciate ligament: Intact. Medial collateral ligament: Large amount of abnormal soft tissue signal along the medial knee followi ng the medial collateral ligament. Increased T2 signal in the proximal MCL but no full-thickness tear . There is slight displacement of the MCL from the joint line. Superficial to the MCL there is hetero geneous signal in the soft tissue. There is fluid and blood products. Posterior lateral corner structures: Small amount of edema along the popliteus muscle and tendon. Ove r the lateral femoral condyle there is increased signal consistent with partial tear. Biceps femoris ligament is intact. Fibular collateral ligament is partially torn. High-grade tear along the lateral femoral condyle. Medial menisci: Intact. Normal signal, size and shape. Lateral meniscus: Intact. Normal signal, size and shape. Extensor mechanism: Distal quadriceps tendon and patellar tendons are intact. Fluid and soft tissue: Moderate size joint effusion. There is a large amount of soft tissue edema angela rounding the distal femoral condyle extending to the knee joint to the proximal tibia. No Easley's cys t. Osseous and articular structures: Patellofemoral compartment: Complete tear of the medial patellar retinaculum. Patella is slightly sub luxed laterally to the tear. There is loss of the normal cortex with marrow edema along the medial mo st patella at the site of the retinacular tear. Medial compartment: No marrow edema. Cartilage preserved. Lateral compartment: Large amount of marrow edema in the lateral femoral condyle. Mild flattening of the lateral femoral condyle at the site of injury with cortical irregularity consistent with trabecul ar fractures. No significant displacement. Marrow edema is at the site of the fibular collateral liga ment and popliteus tendon tear. Pattern of marrow edema is highly suggestive of a transient dislocation of the patella. MR/MR knee LT wo con* [id number] IMPRESSION: 1. Marrow edema in the medial patella and lateral femoral condyle. Pattern con sistent with transient patellar dislocation. 2. Complete tear of the medial patellar retinaculum with the patella being sli ghtly laterally subluxed. 3. Cortical fracture with marrow edema along the medial tibial plateau at the site of the patellar retinaculum tear. 4. Large amount of soft tissue injury with contusion and hemorrhagic pattern a long the medial knee. Mild MCL sprain but no tear identified. 5. Abnormal posterior lateral corner structures. Edema in the popliteus muscle and tendon with the partial tear over the lateral knee. Partially torn fibular collateral ligament. Fibular collateral ligament tear is at the site of marrow edema. 6. Moderate size joint effusion with a large amount of soft tissue edema and i njury.
== END 2024-06-16 08:09 | disposition home or self-care (01) ==
LOC: RAD 08:08
PROVIDERS: PCP Family Medicine; Visit Provider Orthopaedic Surgery
DX: S83.241A Other tear of medial meniscus, current injury, right knee, initial encounter (principal); S83.132A Medial subluxation of proximal end of tibia, left knee, initial encounter; S80.02XA Contusion of left knee, initial encounter; M67.864 Other specified disorders of tendon, left knee; M25.462 Effusion, left knee; X58.XXXA Exposure to other specified factors, initial encounter
CPT/HCPCS: 73721

== ENCOUNTER → 2024-09-09 08:00 | Outpatient (BNVA) | payer OTHER, SELFPAY | PROVIDERS: PCP Family Medicine; Referring Provider Specialist; Visit Provider Specialist | DX: R56.9 Unspecified convulsions (principal) | CPT/HCPCS: 95812 ==